=== PATIENT | male | born 2000 | race African-American/Black ===

== ENCOUNTER 2024-12-21 13:16 | Emergency (ER) | payer OTHER ==
[~2024-12-21] VITALS: Ht 180.3 cm; Wt 69.0 kg
[2024-12-21 13:23] VITALS: TEMP 36.7; O2SAT 100; O2SAT 99
[2024-12-21 14:08] VITALS: BP 111/87; PULSE 65; RESP 16
[2024-12-21] MEDS: KETOROLAC 15MG/ML VIAL IM ONE (14:08)
[2024-12-21] MEDS: ACETAMINOPHEN 325MG TABLET PO ONE (14:08)
[2024-12-21 15:11] LABS: BASOPHILS % 1.3 % (0.0-2.0); HEMATOCRIT. 43.3 % (42.0-52.0); HEMOGLOBIN. 14.2 g/dL (14.0-18.0); LYMPHOCYTES % 39.2 % (20.0-50.0); MEAN CORPUSCULAR HEMOGLOBIN 27.1 pg (28.0-32.0); MEAN CORPUSCULAR HGB CONC 32.9 g/dL (31.0-37.0); MEAN CORPUSCULAR VOLUME 82.6 fL (80.0-94.0); MEAN PLATELET VOLUME 8.4 fl (7.4-10.4); MONOCYTES % 10.7 % (2.0-8.0); NEUTROPHILS % 36.8 % (40.0-76.0); PLATELET 278 x1000/uL (130-400); RED BLOOD CELL COUNT 5.25 mill/uL (4.7-6.1); RED CELL DISTRIBUTION WIDTH 13.9 % (11.6-14.6); WHITE BLOOD COUNT 7.1 x1000/uL (4.5-11.0)
[2024-12-21 15:16] LABS: CHLORIDE 105 mEq/L (98-107); POTASSIUM 3.9 mEq/L (3.5-5.1); SODIUM 139 mEq/L (136-145)
[2024-12-21 15:17] LABS: CALCIUM 9.6 mg/dL (8.7-10.4); CARBON DIOXIDE 26 mEq/L (21-32)
[2024-12-21 15:22] LABS: CREATININE 0.8 mg/dL (0.6-1.3); GLUCOSE 88 mg/dL (70-105); UREA NITROGEN BLOOD 16 mg/dL (9-23)
== END 2024-12-21 15:42 | disposition home or self-care (01) ==
LOC: ER 13:16
DX: S16.1XXA Strain of muscle, fascia and tendon at neck level, initial encounter (principal); M54.2 Cervicalgia; X58.XXXA Exposure to other specified factors, initial encounter; Y93.89 Activity, other specified; Y92.89 Other specified places as the place of occurrence of the external cause; Y99.8 Other external cause status
CPT/HCPCS: 80048; 85025; 36415; 70450; 72125; 96372; 99285; J1885; Z7610